=== PATIENT | male | born 1955 | race American Indian/Alaskan Native ===

== ENCOUNTER 2016-09-07 17:55 | Emergency (ER) | payer MEDICARE, MEDICAID ==
[2016-09-07] MEDS ORDERED: diphenhydrAMINE 50 MG Cap PO ONE (18:24)
[2016-09-07] MEDS ORDERED: Ketorolac 60 MG/2 ML SDV IM ONE (18:24)
[2016-09-07] MEDS ORDERED: LORazepam 2 MG/ML MDV IM ONE (18:24)
[2016-09-07] MEDS ORDERED: Ondansetron 4 MG Tab.DIS PO ONE (18:24)
[2016-09-07 19:58] VITALS: BP 136/73
--- NOTE | 2016-09-08 02:14 | ER ---
DATE SEEN: 09/07/2016 HISTORY OF PRESENT ILLNESS: The patient is a 60-year-old gentleman, who presented to Emergency Department with headache/migraine. He says he has migraines at least 3 to 4 times a month. He usually takes [id number] pain medications for it and it seems to resolve. He is not sure what his triggers are. In the past, a couple of years ago, they did try Imitrex, and it did not seem to help. He says he has some photophobia, but no focal weaknesses. He has some mild nausea, but no actual emesis. MEDICATIONS: 1. Glucophage. 2. Lipitor. 3. Flomax. 4. Propranolol. 5. Lisinopril. 6. Neurontin. 7. Lexapro. 8. Cymbalta. 9. Amitriptyline. 10.Albuterol. ALLERGIES: Hydrocodone and penicillin. PAST MEDICAL HISTORY: 1. Pulmonary emphysema. 2. Cerebrovascular accident. 3. Chronic headaches. 4. Facial numbness. 5. Diabetes, type 2. 6. Obesity. 7. Chronic back pain. REVIEW OF SYSTEMS: CONSTITUTIONAL: No fevers or chills. RESPIRATORY: No shortness of breath. PHYSICAL EXAMINATION: VITAL SIGNS: His temperature is 36.8, pulse is 83, blood pressure is 143/81, respiratory rate is 16, and 94% on room air. GENERAL: He is in no apparent acute distress. HEENT: His pupils are equal and round and responsive to light. Extraocular muscles are intact. Funduscopic exam was within normal limits. Oropharyngeal region is clear. NECK: Supple. No lymphadenopathy. Full range of motion. Nontender. NEUROLOGICAL: No focal deficits. EMERGENCY DEPARTMENT COURSE: The patient received Toradol 60 mg IM, Ativan 1 mg IM, Benadryl 50 mg p.o., and Zofran 4 mg p.o. He had improvement in his symptoms. Neurologically, he remains nonfocal and stable. Vitals remain stable. ASSESSMENT: Acute on chronic migraines. PLAN: Continue current medications, and work on figuring out what his triggers are and limiting them. /[id number] FRANNIE/DAVID
== END 2016-09-07 19:52 | disposition home or self-care (01) ==
LOC: FB.ED 17:55
DX: G43.909 Migraine, unspecified, not intractable, without status migrainosus (principal); E11.9 Type 2 diabetes mellitus without complications; E66.9 Obesity, unspecified; Z86.73 Personal history of transient ischemic attack (TIA), and cerebral infarction without residual deficits; M54.9 Dorsalgia, unspecified; G89.29 Other chronic pain; Z68.42 Body mass index [BMI] 45.0-49.9, adult
CPT/HCPCS: 96372; 99283; A9270; J1885; J2060

== ENCOUNTER 2017-02-07 14:02 | Emergency (ER) | payer MEDICARE, MEDICAID ==
[2017-02-07 16:11] VITALS: BP 135/79
--- NOTE | 2017-02-10 11:27 | ER ---
DATE SEEN: 02/07/2017 TIME: The patient was seen at 1445 hours. HISTORY OF PRESENT ILLNESS: This 61-year-old diabetic with COPD, CVA, small stroke, headaches, left-sided facial weakness, with type 2 diabetes, obesity, BMI greater than 43.5, and chronic back pain, comes in with history of discomfort in his throat of 2 days' duration, radiating to his left ear. He has mild difficulty swallowing. He uses oxycodone for his chronic low back pain. He has disability because of his chronic low back pain. He has prostatism, hypertension, depression, and COPD. He is not using insulin, but uses metformin 1000 mg daily for his diabetes. CURRENT MEDICATIONS: 1. Atorvastatin 20 mg daily. 2. Flomax 0.5 mg daily. 3. Metaxalone 800 mg at bedtime. 4. Lisinopril 10 mg daily. 5. Gabapentin 300 mg t.i.d. 6. Lexapro 10 mg at bedtime. 7. Duloxetine 30 mg daily. 8. Amitriptyline 25 mg daily (4 tablets for not only pain, but also for depression). 9. Albuterol 2 puffs q.i.d. 10.Oxycodone p.r.n. 11.Metformin 1000 mg daily. ALLERGIES: Hydrocodone, penicillin, and shellfish. REVIEW OF SYSTEMS: Otherwise negative except he has chronic problems with lower back pain, uses a cane. He is obese. Denies shortness of breath, chest pain, irregular heartbeat, abdominal pain, recent fever, dysphagia, compromised vision, or loss of sensation in the lower extremities. PHYSICAL EXAMINATION: VITAL SIGNS: Blood pressure 128/58, heart rate 80, respirations 18, oxygen saturation 95%, and temperature is 36.9 degrees centigrade. CONSTITUTIONAL: Alert man who is massively overweight. BMI is 43.5 kg/m2. He has appropriate voice. He is attended by his . He is appropriately dressed and appropriate communication. HEENT: Pharynx has a film of white protein on the soft palate, not on the posterior palate. There is mild erythema noted. Palate is mobile. The uvula is slightly erythematous and slightly off to the side. Minimal cervical adenopathy. No bruits in the neck. Gag is in place. TMs negative. NECK: Supple. LUNGS: Clear without rales, rhonchi, or wheezes. HEART: S1, S2. No murmur. No irregular rate and rhythm. ABDOMEN: Soft. No guarding. No abdominal discomfort. It is difficult to palpate anything in the abdomen because he has such an obese full abdomen. EXTREMITIES: Without edema. NEURO: Not performed. LABORATORY DATA: Quick strep is negative. Thrush test (BENITA) was negative. ASSESSMENT: Soft palate pharyngitis, uvulitis, etiology indeterminate. PLAN: Treat with Keflex 500 mg t.i.d., 30 tablets. The patient has 8% potential for cross reactivity with penicillin allergy. He has had penicillin rash in the past. The patient is informed if he should have a rash, he should discontinue the medicine. Follow up with doctor in 7 to 14 days, earlier if worse. He is advised to work on his weight any way he can to decrease weight. /[id number] AUDRA/DAVID
== END 2017-02-07 16:10 | disposition home or self-care (01) ==
LOC: FB.ED 14:02
DX: J02.9 Acute pharyngitis, unspecified (principal); K12.2 Cellulitis and abscess of mouth; I10 Essential (primary) hypertension; F32.9 Major depressive disorder, single episode, unspecified; E11.9 Type 2 diabetes mellitus without complications; J44.9 Chronic obstructive pulmonary disease, unspecified; Z79.84 Long term (current) use of oral hypoglycemic drugs; Z79.899 Other long term (current) drug therapy; Z88.0 Allergy status to penicillin; Z88.5 Allergy status to narcotic agent; Z91.013 Allergy to seafood
CPT/HCPCS: 87081; 87220; 87430; 99282; 99283

== ENCOUNTER 2017-07-09 13:25 | Emergency (ER) | payer MEDICARE, MEDICAID ==
[2017-07-09] MEDS: Cyclobenzaprine 10 MG Tab PO ONE (14:34)
--- NOTE | 2017-07-09 14:35 | EDM.PDOC ---
ED HPI GENERAL MEDICAL PROBLEM - General Chief Complaint: Back Pain or Injury Stated Complaint: BACK PAIN Time Seen by Provider: 07/09/17 14:00 Source of Information: Reports: Patient History Limitations: Reports: No Limitations - History of Present Illness INITIAL COMMENTS - FREE TEXT/NARRATIVE: c/o LBP pt obese, has chronic LBP, MRI l-spine 3m ago showed DJD and bulging disc and moderate stenosis at L4, has his 1st back surgery at [facility] on 06/05 MPMP shows no fills in past 1y, has used oxycodone in past he took ibuprofen and Excedrin migraine without benefit inc'd pain this AM, slept okay last night no radiation, does have chronic pain in his calves has burning from neuropathy in the soles of his feet for which he takes one gabapentin in AM that helps call to [facility] made, Dr Aguilar prescribed Flexeril 30 tabs and diclofenac on 06/05, only Flexeril was filled pt with [facility] with last BUN/creat 2y ago will need additional pain management with PCP 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 Lower back pain Pain Score (Numeric/FACES): 8 - Related Data Allergies Allergy/AdvReac Type Severity Reaction Status Date / Time hydrocodone Allergy Leg Cramps Verified 07/09/17 13:32 Penicillins Allergy Rash Verified 07/09/17 13:32 shellfish derived Allergy Rash Verified 07/09/17 13:32 Home Meds: Home Meds atorvaSTATin [Lipitor] 20 mg PO DAILY 03/02/15 [History] metFORMIN [Glucophage] 1,000 mg PO DAILY 03/02/15 [History] Albuterol [Ventolin HFA] 2 puff INH Q6H PRN 01/17/16 [History] Amitriptyline [Elavil] 50 mg PO BEDTIME 01/17/16 [History] Escitalopram [Lexapro] 10 mg PO BEDTIME 01/17/16 [History] Gabapentin [Neurontin] 300 mg PO TID 01/17/16 [History] Lisinopril 10 mg PO DAILY 01/17/16 [History] Tamsulosin [Flomax] 0.4 mg PO BEDTIME 01/17/16 [History] Cyclobenzaprine [Flexeril] 10 mg PO TID PRN #30 tab 07/09/17 [Rx] SUMAtriptan [Sumatriptan] 20 mg ELLIE ASDIRECTED PRN 07/09/17 [History] oxyCODONE 5 mg PO Q8H PRN #5 tab 07/09/17 [Rx] Past Medical History - Past Health History Medical/Surgical History: Denies Medical/Surgical History Cardiovascular History: Reports: High Cholesterol Respiratory History: Reports: Sleep Apnea, SOB Other Respiratory History: uses CPAP @ [facility]. Genitourinary History: Reports: Prostate Disorder Musculoskeletal History: Reports: Arthritis, Back Pain, Chronic, Fracture, Neck Pain, Chronic Other Musculoskeletal History: Hx L fx foot, fx pelvis & R hip, R collar bone, R elbow, Neurological History: Reports: Brain Injury, Concussion, Head Trauma, Migraines , Neuropathy, Diabetic, Seizure Psychiatric History: Reports: Anxiety, Depression, Psych Hospitalization(s) Endocrine/Metabolic History: Reports: Diabetes, Type II, Obesity/BMI 30+ - Infectious Disease History Infectious Disease History: Reports: Chicken Pox, Measles - Past Surgical History Head Surgeries/Procedures: Reports: None HEENT Surgical History: Reports: Adenoidectomy, Tonsillectomy GI Surgical History: Reports: Cholecystectomy, Colonoscopy, Hernia Repair/Other Neurological Surgical History: Reports: None Musculoskeletal Surgical History: Reports: Knee Replacement Other Musculoskeletal Surgeries/Procedures:: L knee replacement Social & Family History - Family History Family Medical History: Noncontributory - Tobacco Use Smoking Status *Q: Former Smoker Years of Tobacco use: 40 Packs/Tins Daily: 1 Used Tobacco, but Quit: Yes Month/Year Tobacco Last Used: 2014 Second Hand Smoke Exposure: No - Caffeine Use Caffeine Use: Reports: Coffee, Soda, Tea - Alcohol Use Days Per Week of Alcohol Use: 0 - Recreational Drug Use Recreational Drug Use: Yes Drug Use in Last 12 Months: No Recreational Drug Type: Reports: Marijuana/Hashish ED ROS GENERAL - Review of Systems Review Of Systems: See Below Constitutional: Reports: No Symptoms HEENT: Reports: No Symptoms Respiratory: Reports: No Symptoms Cardiovascular: Reports: No Symptoms Endocrine: Reports: No Symptoms GI/Abdominal: Reports: No Symptoms : Reports: No Symptoms Musculoskeletal: Reports: Back Pain Skin: Reports: No Symptoms Neurological: Reports: No Symptoms Psychiatric: Reports: No Symptoms Hematologic/Lymphatic: Reports: No Symptoms Immunologic: Reports: No Symptoms ED EXAM,LOWER BACK PAIN/INJURY - Physical Exam Exam: See Below Exam Limited By: No Limitations General Appearance: Alert, WD/WN Respiratory/Chest: No Respiratory Distress Cardiovascular: Regular Rate, Rhythm Back Exam: Other (mild tender over lower l-spine as well as adjacent iliac crests, greatest tender over R iliac crest c/w mechanical LBP) Course - Vital Signs Last Recorded V/S: Last Vital Signs Temp 36.8 C 07/09/17 13:29 Pulse 78 07/09/17 13:29 Resp 18 07/09/17 13:29 BP 153/77 H 07/09/17 13:29 Pulse Ox 97 07/09/17 13:29 - Orders/Labs/Meds Orders: Active Orders 24 hr Category Date Time Status Cyclobenzaprine [Flexeril] Med 07/09/17 14:29 Once 10 mg PO ONETIME ONE Ketorolac [Toradol] Med 07/09/17 14:28 Once 60 mg IM ONETIME ONE Medication Orders Cyclobenzaprine HCl (Flexeril) 10 mg PO ONETIME ONE Stop: 07/09/17 14:30 Meds: Medications Generic Name Dose Route Start Last Admin Trade Name Freq PRN Reason Stop Dose Admin Cyclobenzaprine HCl 10 mg 07/09/17 14:29 Flexeril PO 07/09/17 14:30 ONETIME ONE Discontinued Medications Generic Name Dose Route Start Last Admin Trade Name Freq PRN Reason Stop Dose Admin Ketorolac Tromethamine 60 mg 07/09/17 14:28 Toradol IM 07/09/17 14:29 ONETIME ONE Departure - Departure Time of Disposition: 14:36 Disposition: Home, Self-Care 01 Condition: Good Clinical Impression: Low back pain - Discharge Information Prescriptions: Cyclobenzaprine [Flexeril] 10 mg PO TID PRN #30 tab PRN Reason: Pain oxyCODONE 5 mg PO Q8H PRN #5 tab PRN Reason: Pain Instructions: Chronic Back Pain Referrals: PCP,Not In Area [Primary Care Provider] - Additional Instructions: Use heat for 10 minutes 4 times a day. Sleep on a firm mattress. For pain and inflammation, take acetaminophen 325 mg 2 tabs 4 times a day. For pain, take oxycodone 5 mg 1 tab every 8 hours as needed. No alcohol. For pain and spasm, take cyclobenzaprine 10 mg 1 tab 3 times a day as needed. See your doctor in the next 4 days. - My Orders Last 24 Hours: My Active Orders 07/09/17 14:28 Ketorolac [Toradol] 60 mg IM ONETIME ONE 07/09/17 14:29 Cyclobenzaprine [Flexeril] 10 mg PO ONETIME ONE - Assessment/Plan Last 24 Hours: My Active Orders 07/09/17 14:28 Ketorolac [Toradol] 60 mg IM ONETIME ONE 07/09/17 14:29 Cyclobenzaprine [Flexeril] 10 mg PO ONETIME ONE
[2017-07-09] MEDS: Ketorolac 60 MG/2 ML SDV IM ONE (14:37)
[2017-07-09 14:54] VITALS: BP 155/97
== END 2017-07-09 14:48 | disposition home or self-care (01) ==
LOC: FB.ED 13:25
DX: M54.5 Low back pain (principal); E78.00 Pure hypercholesterolemia, unspecified; Z87.891 Personal history of nicotine dependence; E11.9 Type 2 diabetes mellitus without complications; E66.9 Obesity, unspecified; Z88.0 Allergy status to penicillin; Z91.013 Allergy to seafood; Z88.5 Allergy status to narcotic agent; Z79.899 Other long term (current) drug therapy; Z79.84 Long term (current) use of oral hypoglycemic drugs
CPT/HCPCS: 96372; 99283; A9270-GY; J1885

== ENCOUNTER 2018-05-30 16:55 | Emergency (ER) | payer MEDICARE, MEDICAID ==
[2018-05-30 17:44] VITALS: BP 141/70
--- NOTE | 2018-05-30 18:20 | EDM.PDOC ---
ED HPI GENERAL MEDICAL PROBLEM - General Chief Complaint: Neurological Problem Stated Complaint: NUMBNESS IN ARM AND FACE Time Seen by Provider: 05/30/18 17:15 Source of Information: Reports: Patient History Limitations: Reports: No Limitations - History of Present Illness INITIAL COMMENTS - FREE TEXT/NARRATIVE: c/o L cheek and LUE numbness x 1d had some pain as well altho that is gone, numb in the central L cheek and on the extensor aspect LUE from elbow to shoulder no change in sxs with ROM good appetite there was a possible lacunar infarct at L basal ganglia on 01/[address] without today shows no acute changes otherwise feeling well his from cancer 4m ago, now living alone - Related Data Allergies Allergy/AdvReac Type Severity Reaction Status Date / Time hydrocodone Allergy Leg Cramps Verified 05/30/18 17:18 Penicillins Allergy Rash Verified 05/30/18 17:18 shellfish derived Allergy Rash Verified 05/30/18 17:18 Home Meds: Home Meds atorvaSTATin [Lipitor] 20 mg PO DAILY 03/02/15 [History] metFORMIN [Glucophage] 1,000 mg PO DAILY 03/02/15 [History] Albuterol [Ventolin HFA] 2 puff INH Q6H PRN 01/17/16 [History] Gabapentin [Neurontin] 300 mg PO TID 01/17/16 [History] Lisinopril 10 mg PO DAILY 01/17/16 [History] Tamsulosin [Flomax] 0.4 mg PO BEDTIME 01/17/16 [History] SUMAtriptan [Sumatriptan] 20 mg ELLIE ASDIRECTED PRN 07/09/17 [History] Past Medical History - Past Health History Medical/Surgical History: Denies Medical/Surgical History Cardiovascular History: Reports: High Cholesterol Respiratory History: Reports: Sleep Apnea, SOB Other Respiratory History: uses CPAP @ hs. Genitourinary History: Reports: Prostate Disorder Musculoskeletal History: Reports: Arthritis, Back Pain, Chronic, Fracture, Neck Pain, Chronic Other Musculoskeletal History: Hx L fx foot, fx pelvis & R hip, R collar bone, R elbow, Neurological History: Reports: Brain Injury, Concussion, Head Trauma, Migraines , Neuropathy, Diabetic, Seizure Psychiatric History: Reports: Anxiety, Depression, Psych Hospitalization(s) Endocrine/Metabolic History: Reports: Diabetes, Type II, Obesity/BMI 30+ - Infectious Disease History Infectious Disease History: Reports: Chicken Pox, Measles - Past Surgical History Head Surgeries/Procedures: Reports: None HEENT Surgical History: Reports: Adenoidectomy, Tonsillectomy GI Surgical History: Reports: Cholecystectomy, Colonoscopy, Hernia Repair/Other Neurological Surgical History: Reports: None Musculoskeletal Surgical History: Reports: Knee Replacement Other Musculoskeletal Surgeries/Procedures:: L knee replacement Social & Family History - Family History Family Medical History: Noncontributory - Tobacco Use Smoking Status *Q: Former Smoker Used Tobacco, but Quit: Yes Month/Year Tobacco Last Used: 04/07 Second Hand Smoke Exposure: No - Caffeine Use Caffeine Use: Reports: Coffee - Recreational Drug Use Recreational Drug Use: No ED ROS GENERAL - Review of Systems Review Of Systems: See Below Constitutional: Reports: No Symptoms HEENT: Reports: No Symptoms Respiratory: Reports: No Symptoms Cardiovascular: Reports: No Symptoms Endocrine: Reports: No Symptoms GI/Abdominal: Reports: No Symptoms : Reports: No Symptoms Musculoskeletal: Reports: No Symptoms Skin: Reports: No Symptoms Neurological: Reports: Numbness Psychiatric: Reports: No Symptoms Hematologic/Lymphatic: Reports: No Symptoms Immunologic: Reports: No Symptoms ED EXAM, NEURO - Physical Exam Exam: See Below Exam Limited By: No Limitations General Appearance: Alert, WD/WN, No Apparent Distress Eye Exam: Bilateral Eye: EOMI, Normal Inspection, PERRL Ears: Normal External Exam, Normal Canal, Hearing Grossly Normal Nose: Normal Inspection, Normal Mucosa, No Blood Throat/Mouth: Normal Inspection, Normal Lips, Normal Teeth, Normal Gums, Normal Oropharynx, Normal Voice, No Airway Compromise Head Exam: Atraumatic, Normocephalic, Other (slight tender at L cheek) Neck: Normal Inspection, Supple, Non-Tender, Full Range of Motion. No: Lymphadenopathy (R), Lymphadenopathy (L) Respiratory/Chest: No Respiratory Distress, Lungs Clear, Normal Breath Sounds, No Accessory Muscle Use, Chest Non-Tender Cardiovascular: Regular Rate, Rhythm, No Edema, No Gallop, No JVD, No Murmur, No Rub GI/Abdominal: Soft, Non-Tender, No Distention Neurological: Alert, Normal Mood/Affect, CN II-XII Intact, Normal Gait, Oriented x 3, Other (slight numb at LUE on extensor surface from elbow to shoulder, no change with passive ROM L shoulder) Back Exam: Normal Inspection, Full Range of Motion, NT Extremities: Normal Inspection, Normal Range of Motion, Non-Tender, No Pedal Edema Psychiatric: Normal Affect, Normal Mood Skin Exam: Warm, Dry, Intact, Normal Color, No Rash Course - Vital Signs Last Recorded V/S: Last Vital Signs Temp 36.4 C 05/30/18 17:26 Pulse 78 05/30/18 17:26 Resp 18 05/30/18 17:26 BP 141/70 H 05/30/18 17:26 Pulse Ox 95 05/30/18 17:26 - Orders/Labs/Meds Orders: Active Orders 24 hr Category Date Time Status EKG Documentation Completion [RC] ASDIRECTED Care 05/30/18 17:34 Active Head wo Cont [CT] Stat Exams 05/30/18 17:41 Ordered EKG 12 Lead [EK] Routine Ther 05/30/18 17:34 Ordered Labs: Laboratory Tests 05/30/18 05/30/18 05/30/18 Range/Units 17:10 17:10 17:10 WBC 12.3 H (4.5-12.0) X10-3/uL RBC 5.53 (4.30-5.75) x10(6)uL Hgb 16.1 H (11.5-15.5) g/dL Hct 48.5 (30.0-51.3) % MCV 87.6 (80-96) fL MCH 29.1 (27.7-33.6) pg MCHC 33.2 (32.2-35.4) g/dL RDW 14.7 (11.5-15.5) % Plt Count 320 (125-369) X10(3)uL MPV 8.3 (7.4-10.4) fL Neut % (Auto) 66.3 (46-82) % Lymph % (Auto) 24.7 (13-37) % [place] % (Auto) 6.1 (4-12) % Eos % (Auto) 2 (1.0-5.0) % Baso % (Auto) 1 (0-2) % Neut # (Auto) 8.2 (1.6-8.3) # Lymph # (Auto) 3.0 (0.6-5.0) # [place] # (Auto) 0.7 (0.0-1.3) # Eos # (Auto) 0.3 (0.0-0.8) # Baso # (Auto) 0.1 (0.0-0.2) # Sodium 140 (135-145) mmol/L Potassium 3.9 (3.5-5.3) mmol/L Chloride 103 (100-110) mmol/L Carbon Dioxide 26 (21-32) mmol/L BUN 19 H (7-18) mg/dL Creatinine 1.0 (0.70-1.30) mg/dL Est Cr Clr Drug Dosing TNP Estimated GFR (MDRD) > 60 (>60) BUN/Creatinine Ratio 19.0 (9-20) Glucose 87 (80-116) mg/dL Calcium 8.4 L (8.6-10.2) mg/dL Total Bilirubin 0.4 (0.1-1.3) mg/dL AST 25 (5-25) IU/L ALT 36 (12-36) U/L Alkaline Phosphatase 91 (56-112) IU/L Troponin I < 0.017 L (<0.017-0.056) ng/mL Total Protein 6.7 (6.0-8.0) g/dL Albumin 3.8 (3.2-4.6) g/dL Globulin 2.9 g/dL Albumin/Globulin Ratio 1.3 Urine Color (YELLOW) Urine Appearance (CLEAR) Urine pH (5.0-6.5) Ur Specific [place] (1.010-1.025) Urine Protein (NEGATIVE) mg/dL Urine Glucose (UA) (NEGATIVE) mg/dL Urine Ketones (NEGATIVE) mg/dL Urine Occult Blood (NEGATIVE) Urine Nitrite (NEGATIVE) Urine Bilirubin (NEGATIVE) Urine Urobilinogen (NEGATIVE) mg/dL Ur Leukocyte Esterase (NEGATIVE) Urine RBC (0) Urine WBC (0) Ur Squamous Epith Cells (NS,R,O) Urine Bacteria (NS) 05/30/18 Range/Units 17:40 WBC (4.5-12.0) X10-3/uL RBC (4.30-5.75) x10(6)uL Hgb (11.5-15.5) g/dL Hct (30.0-51.3) % MCV (80-96) fL MCH (27.7-33.6) pg MCHC (32.2-35.4) g/dL RDW (11.5-15.5) % Plt Count (125-369) X10(3)uL MPV (7.4-10.4) fL Neut % (Auto) (46-82) % Lymph % (Auto) (13-37) % [place] % (Auto) (4-12) % Eos % (Auto) (1.0-5.0) % Baso % (Auto) (0-2) % Neut # (Auto) (1.6-8.3) # Lymph # (Auto) (0.6-5.0) # [place] # (Auto) (0.0-1.3) # Eos # (Auto) (0.0-0.8) # Baso # (Auto) (0.0-0.2) # Sodium (135-145) mmol/L Potassium (3.5-5.3) mmol/L Chloride (100-110) mmol/L Carbon Dioxide (21-32) mmol/L BUN (7-18) mg/dL Creatinine (0.70-1.30) mg/dL Est Cr Clr Drug Dosing Estimated GFR (MDRD) (>60) BUN/Creatinine Ratio (9-20) Glucose (80-116) mg/dL Calcium (8.6-10.2) mg/dL Total Bilirubin (0.1-1.3) mg/dL AST (5-25) IU/L ALT (12-36) U/L Alkaline Phosphatase (56-112) IU/L Troponin I (<0.017-0.056) ng/mL Total Protein (6.0-8.0) g/dL Albumin (3.2-4.6) g/dL Globulin g/dL Albumin/Globulin Ratio Urine Color Yellow (YELLOW) Urine Appearance Clear (CLEAR) Urine pH 5.0 (5.0-6.5) Ur Specific [place] 1.015 (1.010-1.025) Urine Protein Negative (NEGATIVE) mg/dL Urine Glucose (UA) Normal (NEGATIVE) mg/dL Urine Ketones 15 H (NEGATIVE) mg/dL Urine Occult Blood Negative (NEGATIVE) Urine Nitrite Negative (NEGATIVE) Urine Bilirubin Negative (NEGATIVE) Urine Urobilinogen Normal (NEGATIVE) mg/dL Ur Leukocyte Esterase Negative (NEGATIVE) Urine RBC Not seen (0) Urine WBC 0-5 (0) Ur Squamous Epith Cells Few H (NS,R,O) Urine Bacteria Few H (NS) - Re-Assessments/Exams Free Text/Narrative Re-Assessment/Exam: 05/30/18 18:22 labs are neg except 15 ketones in urine EKG WNL cannot exclude a TIA altho seems unlikely given c/o of both pain and numbness as well as both L cheek and LUE numbness Departure - Departure Time of Disposition: 18:15 Disposition: Home, Self-Care 01 Condition: Good Clinical Impression: Left arm numbness, Left facial numbness - Discharge Information *PRESCRIPTION DRUG MONITORING PROGRAM REVIEWED*: Not Applicable *COPY OF PRESCRIPTION DRUG MONITORING REPORT IN PATIENT EBONIE: Not Applicable Referrals: Sara Pena [employer] MAINTENANCE SUPERVISOR [Primary Care Provider] - Additional Instructions: Continue current meds, including the baby aspirin. Continue current activities. No limitations. See your doctor in the next 3-5 days. Return to ED if you are feeling worse. - My Orders Last 24 Hours: My Active Orders 05/30/18 17:34 EKG Documentation Completion [RC] ASDIRECTED EKG 12 Lead [EK] Routine 05/30/18 17:41 Head wo Cont [CT] Stat - Assessment/Plan Last 24 Hours: My Active Orders 05/30/18 17:34 EKG Documentation Completion [RC] ASDIRECTED EKG 12 Lead [EK] Routine 05/30/18 17:41 Head wo Cont [CT] Stat
== END 2018-05-30 18:20 | disposition home or self-care (01) ==
LOC: FB.ED 16:55
DX: R20.0 Anesthesia of skin (principal); E11.9 Type 2 diabetes mellitus without complications; E66.9 Obesity, unspecified; Z91.013 Allergy to seafood; Z79.84 Long term (current) use of oral hypoglycemic drugs; Z79.899 Other long term (current) drug therapy; Z98.890 Other specified postprocedural states; Z90.49 Acquired absence of other specified parts of digestive tract; Z87.891 Personal history of nicotine dependence; Z88.0 Allergy status to penicillin
CPT/HCPCS: 36415; 70450; 80053; 81001; 84484; 85025; 93005; 93010; 99283; 99284-25

== ENCOUNTER 2018-07-01 13:34 | Emergency (ER) | payer MEDICARE, MEDICAID ==
[2018-07-01] MEDS ORDERED: Aspirin 81 MG Tab.Chew PO ONE ×2 (13:51→15:33)
--- NOTE | 2018-07-01 13:56 | EDM.PDOC ---
ED HPI GENERAL MEDICAL PROBLEM - General Stated Complaint: LEFT ARM PAIN NUMBNESS SOB Time Seen by Provider: 07/01/18 13:34 Source of Information: Reports: Patient, Family History Limitations: Reports: No Limitations - History of Present Illness INITIAL COMMENTS - FREE TEXT/NARRATIVE: 62 y.o.w.m with H/O COPD, CVA NIDDM came to the ED due to left arm tingling since 7 am today. Pt took a baby ASA without help, left arm pain is rated at 4/ 10 on arrival. Pt had an angiogram done at [facility] 4-5 years ago which was found to be neg. Pt was seen a t clinic a week ago with left arm pain and was told it is bursitis. Pt is not using tobacco. No N/V has mild SOB, No SSCP on arrival. No other acute medical Issues. BP 127/64 RR 17 Pulse ox on RA 97%, Temp 36.7 Pulse 77 Onset Date: 07/01/18 Onset Time: 07:00 Duration: Hour(s):, Intermittent Location: Reports: Chest, Upper Extremity, Left Quality: Reports: Dull Improves with: Reports: None Worsens with: Reports: None Context: Reports: Other Associated Symptoms: Reports: Shortness of Breath L neck in to L arm Pain Score (Numeric/FACES): 5 - Related Data Allergies Allergy/AdvReac Type Severity Reaction Status Date / Time hydrocodone Allergy Leg Cramps Verified 07/01/18 13:51 Penicillins Allergy Rash Verified 07/01/18 13:51 shellfish derived Allergy Rash Verified 07/01/18 13:51 Home Meds: Home Meds atorvaSTATin [Lipitor] 20 mg PO DAILY 03/02/15 [History] metFORMIN [Glucophage] 1,000 mg PO DAILY 03/02/15 [History] Albuterol [Ventolin HFA] 2 puff INH Q6H PRN 01/17/16 [History] Gabapentin [Neurontin] 300 mg PO TID 01/17/16 [History] Lisinopril 10 mg PO DAILY 01/17/16 [History] Tamsulosin [Flomax] 0.4 mg PO BEDTIME 01/17/16 [History] SUMAtriptan [Sumatriptan] 20 mg ELLIE ASDIRECTED PRN 07/09/17 [History] Amitriptyline [Elavil] 50 mg PO BEDTIME 07/01/18 [History] Aspirin 81 mg PO DAILY 07/01/18 [History] Omeprazole 20 mg PO BEDTIME 07/01/18 [History] Propranolol HCl [Propranolol HCl ER] 120 mg PO DAILY 07/01/18 [History] Past Medical History - Past Health History Medical/Surgical History: Denies Medical/Surgical History Cardiovascular History: Reports: High Cholesterol Respiratory History: Reports: Sleep Apnea, SOB Other Respiratory History: uses CPAP @ [facility]. Genitourinary History: Reports: Prostate Disorder Musculoskeletal History: Reports: Arthritis, Back Pain, Chronic, Fracture, Neck Pain, Chronic Other Musculoskeletal History: Hx L fx foot, fx pelvis & R hip, R collar bone, R elbow, Neurological History: Reports: Brain Injury, Concussion, Head Trauma, Migraines , Neuropathy, Diabetic, Seizure Psychiatric History: Reports: Anxiety, Depression, Psych Hospitalization(s) Endocrine/Metabolic History: Reports: Diabetes, Type II, Obesity/BMI 30+ - Infectious Disease History Infectious Disease History: Reports: Chicken Pox, Measles - Past Surgical History Head Surgeries/Procedures: Reports: None HEENT Surgical History: Reports: Adenoidectomy, Tonsillectomy GI Surgical History: Reports: Cholecystectomy, Colonoscopy, Hernia Repair/Other Neurological Surgical History: Reports: None Musculoskeletal Surgical History: Reports: Knee Replacement Other Musculoskeletal Surgeries/Procedures:: L knee replacement Social & Family History - Family History Family Medical History: Noncontributory - Caffeine Use Caffeine Use: Reports: Coffee ED ROS GENERAL - Review of Systems Review Of Systems: See Below Constitutional: Reports: No Symptoms HEENT: Reports: No Symptoms Respiratory: Reports: Shortness of Breath Cardiovascular: Reports: Other (left arm numb since 7 am) Endocrine: Reports: Other (diabetes) GI/Abdominal: Reports: No Symptoms : Reports: No Symptoms Musculoskeletal: Reports: No Symptoms Skin: Reports: No Symptoms Neurological: Reports: No Symptoms, Tingling (left arm) Psychiatric: Reports: No Symptoms Hematologic/Lymphatic: Reports: No Symptoms Immunologic: Reports: No Symptoms ED EXAM, GENERAL - Physical Exam Exam: See Below Exam Limited By: No Limitations General Appearance: Alert, WD/WN, Mild Distress, Obese (morbid) Eye Exam: Bilateral Eye: Normal Inspection Ears: Normal External Exam Ear Exam: Bilateral Ear: Auricle Normal Nose: Normal Inspection, Normal Mucosa, No Blood Throat/Mouth: Normal Inspection, Normal Lips, Normal Voice, No Airway Compromise Head: Atraumatic, Normocephalic Neck: Normal Inspection, Supple, Non-Tender, Full Range of Motion Respiratory/Chest: No Respiratory Distress, Lungs Clear, Decreased Breath Sounds Cardiovascular: Normal Peripheral Pulses, Regular Rate, Rhythm, No Edema, No JVD Peripheral Pulses: 1+: Radial (L) GI/Abdominal: Normal Bowel Sounds, Soft, Non-Tender, No Organomegaly, No Distention, No Abnormal Bruit, No Mass, Pelvis Stable (Male) Exam: Deferred Rectal (Males) Exam: Deferred Back Exam: Normal Inspection Extremities: Normal Inspection, Normal Range of Motion, Non-Tender, No Pedal Edema, Normal Capillary Refill Neurological: Alert, Oriented, CN II-XII Intact, Normal Cognition, Normal Gait Psychiatric: Normal Affect, Normal Mood Skin Exam: Warm, Dry, Intact, Normal Color, No Rash Lymphatic: No Adenopathy EKG INTERPRETATION EKG Date: 07/01/18 Time: 13:45 Rhythm: NSR Rate (Beats/Min): 76 Helix: Normal P-Wave: Present QRS: Normal ST-T: Normal (1/2 mm inf leads, no change from 05/30/2018) QT: Normal Comparison: NA - No Prior EKG Course - Vital Signs Text/Narrative:: 62 y.o.w.m with H/O COPD, CVA NIDDM came to the ED due to left arm tingling since 7 am today. Pt took a baby ASA without help, left arm pain is rated at 4/ 10 on arrival. Pt had an angiogram done at [facility] 4-5 years ago which was found to be neg. Pt was seen a t clinic a week ago with left arm pain and was told it is bursitis. Pt is not using tobacco. No N/V has mild SOB, No SSCP on arrival. No other acute medical Issues. BP 127/64 RR 17 Pulse ox on RA 97%, Temp 36.7 Pulse 77 PE: Morbid obes 62 y.o.w.m with left arm pain and SOB Imaging: CXR: COPD, Atelectasis LLL of lung as per RAD Labs: Troponin 0.017 D Dimer 0.63 Mg 1.6 Ca 8.4 remainder of BMP was nl. CBC nl Impression: Unstable angina, Low Magnesium, low Ca. h/o NIDDM, elevated D Dimer Tx: ASA, Mg. NTG paste, Heparin drip with bolus, Morphine Reexam: Pt was stable in the ED, left arm pain was still rated 4/10 PT MS was given 2.58 pm Consultation: Dr. Gaffney, Hospitalist: Transfer to [place] 3.07 pm Consultation: Dr. Garcia, Floor Sanding Machine Operator, [facility]: admit to Medicine, will do an angiogram as soon the patient arrives 3.[address] Blue, Hospitalist, [facility]: Accepted the PT for transfer and admission and further care to [facility]. Will do an angia CT Chest as need at [facility]. Reexam: Pain still 4/10 despite ASA, NTG and Morphine at time of transfere by EMS Plan: Transfer to [facility] Last Recorded V/S: Last Vital Signs Temp 36.3 C 07/01/18 13:38 Pulse 89 07/01/18 16:00 Resp 20 07/01/18 16:00 BP 125/64 07/01/18 16:00 Pulse Ox 92 L 07/01/18 16:00 - Orders/Labs/Meds Labs: Laboratory Tests 07/01/18 07/01/18 07/01/18 Range/Units 14:27 14:27 14:27 WBC 10.9 (4.5-12.0) X10-3/uL RBC 5.30 (4.30-5.75) x10(6)uL Hgb 15.6 (13.5-17.8) g/dL Hct 46.2 (30.0-51.3) % MCV 87.1 (80-96) fL MCH 29.4 (27.7-33.6) pg MCHC 33.8 (32.2-35.4) g/dL RDW 14.7 (11.5-15.5) % Plt Count 296 (125-369) X10(3)uL MPV 8.2 (7.4-10.4) fL Neut % (Auto) 62.8 (46-82) % Lymph % (Auto) 22.1 (13-37) % Bates % (Auto) 8.6 (4-12) % Eos % (Auto) 4 (1.0-5.0) % Baso % (Auto) 3 H (0-2) % Neut # (Auto) 6.9 (1.6-8.3) # Lymph # (Auto) 2.4 (0.6-5.0) # Bates # (Auto) 0.9 (0.0-1.3) # Eos # (Auto) 0.4 (0.0-0.8) # Baso # (Auto) 0.3 H (0.0-0.2) # PT 10.4 (8.7-11.1) INR 1.07 (0.89-1.13) APTT (24.4-33.2) SECONDS D-Dimer, Quantitative 0.63 H (0.0-0.59) mg/LFEU Sodium 140 (135-145) mmol/L Potassium 4.3 (3.5-5.3) mmol/L Chloride 103 (100-110) mmol/L Carbon Dioxide 31 (21-32) mmol/L BUN 16 (7-18) mg/dL Creatinine 1.0 (0.70-1.30) mg/dL Est Cr Clr Drug Dosing 87.67 mL/min Estimated GFR (MDRD) > 60 (>60) BUN/Creatinine Ratio 16.0 (9-20) Glucose 98 (80-116) mg/dL Calcium 8.4 L (8.6-10.2) mg/dL Magnesium (1.8-2.5) mg/dL Troponin I (<0.017-0.056) ng/mL 07/01/18 07/01/18 07/01/18 Range/Units 14:27 14:27 14:27 WBC (4.5-12.0) X10-3/uL RBC (4.30-5.75) x10(6)uL Hgb (13.5-17.8) g/dL Hct (30.0-51.3) % MCV (80-96) fL MCH (27.7-33.6) pg MCHC (32.2-35.4) g/dL RDW (11.5-15.5) % Plt Count (125-369) X10(3)uL MPV (7.4-10.4) fL Neut % (Auto) (46-82) % Lymph % (Auto) (13-37) % Bates % (Auto) (4-12) % Eos % (Auto) (1.0-5.0) % Baso % (Auto) (0-2) % Neut # (Auto) (1.6-8.3) # Lymph # (Auto) (0.6-5.0) # Bates # (Auto) (0.0-1.3) # Eos # (Auto) (0.0-0.8) # Baso # (Auto) (0.0-0.2) # PT (8.7-11.1) INR (0.89-1.13) APTT 25.1 (24.4-33.2) SECONDS D-Dimer, Quantitative (0.0-0.59) mg/LFEU Sodium (135-145) mmol/L Potassium (3.5-5.3) mmol/L Chloride (100-110) mmol/L Carbon Dioxide (21-32) mmol/L BUN (7-18) mg/dL Creatinine (0.70-1.30) mg/dL Est Cr Clr Drug Dosing mL/min Estimated GFR (MDRD) (>60) BUN/Creatinine Ratio (9-20) Glucose (80-116) mg/dL Calcium (8.6-10.2) mg/dL Magnesium 1.6 L (1.8-2.5) mg/dL Troponin I < 0.017 L (<0.017-0.056) ng/mL Meds: Medications Discontinued Medications Generic Name Dose Route Start Last Admin Trade Name Freq PRN Reason Stop Dose Admin Albuterol/Ipratropium 3 ml 07/01/18 14:33 07/01/18 15:05 Duoneb 3.0-0.5 Mg/3 Ml NEB 07/01/18 14:34 3 ml ONETIME ONE Administration Aspirin 324 mg 07/01/18 13:51 07/01/18 16:21 Aspirin PO 07/01/18 13:52 Not Given ONETIME ONE Aspirin 243 mg 07/01/18 15:33 07/01/18 14:00 Aspirin PO 07/01/18 15:34 243 mg ONETIME ONE Administration Heparin Sodium (Porcine) 4,000 units 07/01/18 15:45 07/01/18 16:12 Heparin Sodium IVPUSH 07/01/18 15:46 4,000 units ONETIME ONE Administration Magnesium Sulfate 4 gm/ Premix 50 mls @ 150 mls/hr 07/01/18 14:53 07/01/18 15 :30 IV 07/01/18 14:54 150 mls/hr ONETIME STA Administration Heparin Sodium/Sodium Chloride 25,000 units in 500 mls @ 35.924 mls/hr 15:30 Heparin 25,000 Units In 1/2 Ns 500 Ml IV TITRATE ENE Protocol 12 UNITS/KG/HR Heparin Sodium/Sodium Chloride 25,000 units in 500 mls @ 20.058 mls/hr 15:45 07/01/18 16:15 Heparin 25,000 Units In 1/2 Ns 500 Ml IV 6.7 units/kg/hr TITRATE ENE 20.058 mls/hr Administration Protocol 6.7 UNITS/KG/HR Morphine Sulfate 2 mg 07/01/18 15:40 07/01/18 16:14 Morphine IVPUSH 07/01/18 15:41 2 mg ONETIME STA Administration Nitroglycerin 0.4 mg 07/01/18 14:53 07/01/18 15:32 Nitro-Dur 0.4 Mg/Hr TRDERM 07/01/18 14:54 0.4 mg DAILY STA Administration Sodium Chloride 10 ml 07/01/18 19:55 Saline Flush FLUSH ASDIRECTED PRN Keep Vein Open Departure - Departure Time of Disposition: 04:00 Disposition: DC/Tfer to [facility] 02 Reason for Transfer *Q: Other (No health analyst) Condition: Fair Clinical Impression: Unstable angina Referrals: Sara Pena DIRECTOR OF OPERATIONS FOR THERAPY [Primary Care Provider] - Forms: ED Department Discharge
[2018-07-01] MEDS ORDERED: Albuterol/Ipratropium 3.0-0.5 MG/3 ML Neb Soln NEB ONE (14:33)
[2018-07-01] MEDS ORDERED: Nitroglycerin 0.4 MG/HR Transdermal Patch TRDERM STA (14:53)
[2018-07-01] MEDS ORDERED: Magnesium Sulfate/Water 4 GM in Premix Bag 1 BAG IV STA (14:53)
--- NOTE | 2018-07-01 15:13 | CR ---
INDICATION: Short of breath, left arm pain. CHEST: Two PA views and a lateral view of the chest, 07/01/18, were compared with 03/02/15 and 06/08/13. The heart overall appears normal in size. The aorta is tortuous with calcification in the arch. Prominent AP diameter with slightly flattened diaphragm leaves and hyperaeration suggests COPD - correlate clinically. There are some linear densities at the left lower lung field and costophrenic angle, raising question of linear atelectasis and/or fibrosis. A definite active infiltrate or effusion was not identified. Bridging hyperostotic changes are noted in the mid thoracic spine. IMPRESSION: 1. No definite acute process - minimal linear atelectasis may be present, however, at the left lung base. 2. COPD likely - correlate clinically. 3. ASD aorta. 4. DJD spine. Report was given by phone to Dr. Mack at approximately 1435 hours on 07/01/18. [facility]
[2018-07-01] MEDS ORDERED: Heparin Sodium/0.45% NaCl 25,000 UNITS/500 ML BAG IV SCH ×2 (15:30→15:45)
[2018-07-01] MEDS ORDERED: Morphine 2 MG/ML Syringe IVPUSH STA (15:40)
[2018-07-01] MEDS ORDERED: Heparin Sodium 5,000 Units/ML Vial IVPUSH ONE (15:45)
[2018-07-01] MEDS ORDERED: Sodium Chloride 0.9% 10 ML Syringe FLUSH PRN (19:55)
[2018-07-01 20:07] VITALS: BP 125/64
== END 2018-07-01 16:23 ==
LOC: FB.ED 13:34 → FB.MS 15:28 → UNDOADMOB 15:28 → FB.ED 16:23
DX: I20.0 Unstable angina (principal); J44.9 Chronic obstructive pulmonary disease, unspecified; E11.9 Type 2 diabetes mellitus without complications; E78.00 Pure hypercholesterolemia, unspecified; R79.1 Abnormal coagulation profile; E83.42 Hypomagnesemia; E83.51 Hypocalcemia; Z79.84 Long term (current) use of oral hypoglycemic drugs; Z88.5 Allergy status to narcotic agent; Z88.0 Allergy status to penicillin; Z91.013 Allergy to seafood; Z86.73 Personal history of transient ischemic attack (TIA), and cerebral infarction without residual deficits; Z79.899 Other long term (current) drug therapy; Z79.82 Long term (current) use of aspirin
CPT/HCPCS: 36415; 71046; 80048; 83735; 84484; 85025; 85379; 85610; 85730; 93005; 94640; A9270; J1644; J2270; J3475; J7620-GY

== ENCOUNTER 2018-10-27 14:14 | Emergency (ER) | payer MEDICARE, MEDICAID ==
[2018-10-27] MEDS ORDERED: Bupivacaine 0.5% 10 ML SDV INJECT ONE (14:15)
[2018-10-27] MEDS ORDERED: Sulfamethoxazole/Trimethoprim 800-160 MG Tab PO ONE (14:28)
[2018-10-27 14:42] VITALS: BP 122/97; PULSE 71
--- NOTE | 2018-10-27 14:46 | EDM.PDOC ---
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 Daniel was bleeding initially. No active bleed on arrival. Pt feels numb at the lat aspect at his left index finger, which is new. His has otherwise good ROM. No other acute med issues. Last TD 5 years ago. BP 122/97 RR 18 Pulse ox 97% on RA Temp 36.8 Pulse 97 Onset Date: 10/27/18 Onset Time: 13:00 Duration: Minutes:, Hour(s): Location: Reports: Upper Extremity, Left (2nd finger) Quality: Reports: Ache, Burning, Dull Severity: Mild Improves with: Reports: Rest Worsens with: Reports: Movement Context: Reports: Trauma Associated Symptoms: Reports: No Other Symptoms left finger Pain Score (Numeric/FACES): 5 - Related Data Allergies Allergy/AdvReac Type Severity Reaction Status Date / Time hydrocodone Allergy Leg Cramps Verified 10/27/18 14:38 Penicillins Allergy Rash Verified 10/27/18 14:38 shellfish derived Allergy Rash Verified 10/27/18 14:38 Home Meds: Home Meds atorvaSTATin [Lipitor] 20 mg PO DAILY 03/02/15 [History] metFORMIN [Glucophage] 1,000 mg PO DAILY 03/02/15 [History] Albuterol [Ventolin HFA] 2 puff INH Q6H PRN 01/17/16 [History] Gabapentin [Neurontin] 300 mg PO TID 01/17/16 [History] Lisinopril 10 mg PO DAILY 01/17/16 [History] Tamsulosin [Flomax] 0.4 mg PO BEDTIME 01/17/16 [History] SUMAtriptan [Sumatriptan] 20 mg ELLIE ASDIRECTED PRN 07/09/17 [History] Amitriptyline [Elavil] 50 mg PO BEDTIME 07/01/18 [History] Aspirin 81 mg PO DAILY 07/01/18 [History] Omeprazole 20 mg PO BEDTIME 07/01/18 [History] Propranolol HCl [Propranolol HCl ER] 120 mg PO DAILY 07/01/18 [History] Sulfamethoxazole/Trimethoprim [Bactrim Ds Tablet] 1 each PO BID #20 tablet 10/27 [Rx] Past Medical History - Past Health History Medical/Surgical History: Denies Medical/Surgical History HEENT History: Reports: Macular Degeneration Cardiovascular History: Reports: High Cholesterol Respiratory History: Reports: Sleep Apnea, SOB Other Respiratory History: uses CPAP @ [facility]. Gastrointestinal History: Reports: GERD Genitourinary History: Reports: Prostate Disorder Musculoskeletal History: Reports: Arthritis, Back Pain, Chronic, Fracture, Neck Pain, Chronic Other Musculoskeletal History: Hx L fx foot, fx pelvis & R hip, R collar bone, R elbow, Neurological History: Reports: Brain Injury, Concussion, Head Trauma, Migraines , Neuropathy, Diabetic, Seizure Psychiatric History: Reports: Anxiety, Depression, Psych Hospitalization(s) Other Psychiatric History: ETOH abuse & tx Endocrine/Metabolic History: Reports: Diabetes, Type II, Obesity/BMI 30+ - Infectious Disease History Infectious Disease History: Reports: Chicken Pox, Measles - Past Surgical History Head Surgeries/Procedures: Reports: None HEENT Surgical History: Reports: Adenoidectomy, Tonsillectomy GI Surgical History: Reports: Cholecystectomy, Colonoscopy, Hernia Repair/Other Neurological Surgical History: Reports: None Musculoskeletal Surgical History: Reports: Knee Replacement Other Musculoskeletal Surgeries/Procedures:: L knee replacement Social & Family History - Family History Family Medical History: Noncontributory - Caffeine Use Caffeine Use: Reports: Coffee ED ROS GENERAL - Review of Systems Review Of Systems: See Below Constitutional: Reports: No Symptoms HEENT: Reports: No Symptoms Respiratory: Reports: No Symptoms Cardiovascular: Reports: No Symptoms Endocrine: Reports: No Symptoms GI/Abdominal: Reports: No Symptoms : Reports: No Symptoms Musculoskeletal: Reports: Hand Pain (left index finger) Skin: Reports: No Symptoms Neurological: Reports: No Symptoms Psychiatric: Reports: No Symptoms Hematologic/Lymphatic: Reports: No Symptoms Immunologic: Reports: No Symptoms ED EXAM, SKIN/RASH Exam: See Below Exam Limited By: No Limitations General Appearance: Alert, WD/WN, Mild Distress Eye Exam: Bilateral Eye: Normal Inspection Ears: Normal External Exam, Normal Canal Nose: Normal Inspection, Normal Mucosa, No Blood Throat/Mouth: Normal Lips, Normal Voice, No Airway Compromise Head: Atraumatic, Normocephalic Neck: Normal Inspection, Supple, Non-Tender Respiratory/Chest: No Respiratory Distress, Lungs Clear, Normal Breath Sounds, Chest Non-Tender Cardiovascular: Normal Peripheral Pulses, Regular Rate, Rhythm, No Edema, No Rub Peripheral Pulses: 1+: Brachial (R) GI/Abdominal: Normal Bowel Sounds (Male) Exam: Deferred Rectal (Males) Exam: Deferred Back Exam: Normal Inspection, Full Range of Motion Extremities: Normal Range of Motion, No Pedal Edema, Normal Capillary Refill, Other (laceration at base of 2nd index finger left hand) Skin: Wound/Incision (base left index finger) Lymphatic: No Adenopathy ED SKIN PROCEDURES - Laceration/Wound Repair Left Digit - 2nd (Index) Lac/Wound length In cm: 2.0 Appearance: Stellate, Mildly Contaminated Distal NVT: No Tendon Injury, Other (numbnett left med finger) Local Anesthesia - Bupivicaine (Marcaine): 0.5% Plain Local Anesthetic Volume: 3cc Skin Prep: Providone-Iodine (Betadine) Saline Irrigation (cc's): 10 Exploration/Debridement/Repair: Wound Explored, In a Bloodless Field, Explored to Base Suture Size: 4-0 # of Sutures: 4 Suture Type: Interrupted, Other (ethilon) Tetanus Status Addressed: Yes (5 years ago.) Complications: No Course - Vital Signs Text/Narrative:: 62 y.i.w.m came to the ed shortly after 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 Daniel was bleeding initially. No active bleed on arrival. Pt feels numb at the lat aspect at his left index finger, which is new. His has otherwise good ROM. No other acute med issues. Last TD 5 years ago. BP 122/97 RR 18 Pulse ox 97% on RA Temp 36.8 Pulse 97 PE: WNWD W M with a left index finger LAC. No FB seen in wound Imaging: Not not indicated Procedure: Please see note above. Impression: Laceration left index finger. Repaired in the ED Tx: Wound care. LAC repair. Bactrim DS. Neosporin ointment Reexam: Improved Plan: D/C with instructions Last Recorded V/S: Last Vital Signs Temp 36.7 C 10/27/18 14:15 Pulse 71 10/27/18 14:15 Resp 18 10/27/18 14:15 BP 122/97 H 10/27/18 14:15 Pulse Ox 97 10/27/18 14:15 - Orders/Labs/Meds Meds: Medications Discontinued Medications Generic Name Dose Route Start Last Admin Trade Name Melinda PRN Reason Stop Dose Admin Trimethoprim/Sulfamethoxazole 1 tab 10/27/18 14:28 10/27/18 14:52 Septra Ds PO 10/27/18 14:29 1 tab ONETIME ONE Administration Departure - Departure Time of Disposition: 14:50 Disposition: Home, Self-Care 01 Condition: Good Clinical Impression: Laceration - Discharge Information Prescriptions: Sulfamethoxazole/Trimethoprim [Bactrim Ds Tablet] 1 each PO BID #20 tablet Instructions: Laceration Care, Adult, [id number], Sutured Wound Care, Easy-to -Read Referrals: Sara Pena PIT INSPECTOR [Primary Care Provider] - Forms: ED Department Discharge Additional Instructions: Please apply Neosporin ointment to wound twice daily, wound check in 2 days, suture removal in 2 weeks. Please come back if you symptoms get worse acutely.
== END 2018-10-27 15:10 | disposition home or self-care (01) ==
LOC: FB.ED 14:14
DX: S61.211A Laceration without foreign body of left index finger without damage to nail, initial encounter (principal); K21.9 Gastro-esophageal reflux disease without esophagitis; E11.9 Type 2 diabetes mellitus without complications; E66.9 Obesity, unspecified; Z79.82 Long term (current) use of aspirin; Z79.899 Other long term (current) drug therapy; Z90.49 Acquired absence of other specified parts of digestive tract; Z98.890 Other specified postprocedural states; Z88.0 Allergy status to penicillin; Z91.013 Allergy to seafood; W29.8XXA Contact with other powered hand tools and household machinery, initial encounter; Y99.0 Civilian activity done for income or pay
CPT/HCPCS: 12001; 99282; A9270; J3490; 99288

== ENCOUNTER 2018-11-25 14:43 | Emergency (ER) | payer MEDICARE, MEDICAID ==
[2018-11-25] MEDS ORDERED: Sodium Chloride 0.9% 1,000 ML IV ONE ×2 (14:55→16:34)
[2018-11-25] MEDS ORDERED: Sodium Chloride 0.9% 10 ML Syringe FLUSH PRN (15:10)
[2018-11-25] MEDS ORDERED: Meclizine 25 MG Tab PO ONE (15:34)
[2018-11-25 17:36] VITALS: BP 125/83
--- NOTE | 2018-11-25 17:41 | EDM.PDOC ---
ED HPI GENERAL MEDICAL PROBLEM - General Chief Complaint: Cardiovascular Problem Stated Complaint: DIZZY AND LIGHT HEADED Time Seen by Provider: 11/25/18 15:00 Source of Information: Reports: Patient History Limitations: Reports: No Limitations - History of Present Illness INITIAL COMMENTS - FREE TEXT/NARRATIVE: Patient is a 62 YO WM who presented to the ED because he fell down yesterday and landed on his right hip. There is no LOC after the fall but c/o rt hip pain. He recalled that prior to him falling he felt dizzy and almost had a black out. He denies any chest pain,nausea,vomiting. No headache or palpitations. - Related Data Allergies Allergy/AdvReac Type Severity Reaction Status Date / Time hydrocodone Allergy Leg Cramps Verified 11/25/18 14:51 Penicillins Allergy Rash Verified 11/25/18 14:51 shellfish derived Allergy Rash Verified 11/25/18 14:51 Home Meds: Home Meds atorvaSTATin [Lipitor] 20 mg PO DAILY 03/02/15 [History] metFORMIN [Glucophage] 500 mg PO DAILY 03/02/15 [History] Albuterol [Ventolin HFA] 2 puff INH Q6H PRN 01/17/16 [History] Gabapentin [Neurontin] 300 mg PO TID 01/17/16 [History] Lisinopril 10 mg PO DAILY 01/17/16 [History] Tamsulosin [Flomax] 0.4 mg PO BEDTIME 01/17/16 [History] SUMAtriptan [Sumatriptan] 20 mg ELLIE ASDIRECTED PRN 07/09/17 [History] Amitriptyline [Elavil] 50 mg PO BEDTIME 07/01/18 [History] Aspirin 81 mg PO DAILY 07/01/18 [History] Omeprazole 20 mg PO BEDTIME 07/01/18 [History] Propranolol HCl [Propranolol HCl ER] 120 mg PO DAILY 07/01/18 [History] Past Medical History - Past Health History Medical/Surgical History: Denies Medical/Surgical History HEENT History: Reports: Macular Degeneration Cardiovascular History: Reports: High Cholesterol Respiratory History: Reports: Sleep Apnea, SOB Other Respiratory History: uses CPAP @ [facility]. Gastrointestinal History: Reports: GERD Genitourinary History: Reports: Prostate Disorder Musculoskeletal History: Reports: Arthritis, Back Pain, Chronic, Fracture, Neck Pain, Chronic Other Musculoskeletal History: Hx L fx foot, fx pelvis & R hip, R collar bone, R elbow, Neurological History: Reports: Brain Injury, Concussion, Head Trauma, Migraines , Neuropathy, Diabetic, Seizure Psychiatric History: Reports: Anxiety, Depression, Psych Hospitalization(s) Other Psychiatric History: ETOH abuse & tx Endocrine/Metabolic History: Reports: Diabetes, Type II, Obesity/BMI 30+ - Infectious Disease History Infectious Disease History: Reports: Chicken Pox, Measles - Past Surgical History Head Surgeries/Procedures: Reports: None HEENT Surgical History: Reports: Adenoidectomy, Tonsillectomy GI Surgical History: Reports: Cholecystectomy, Colonoscopy, Hernia Repair/Other , Polypectomy Neurological Surgical History: Reports: None Musculoskeletal Surgical History: Reports: Knee Replacement Other Musculoskeletal Surgeries/Procedures:: L knee replacement Social & Family History - Family History Family Medical History: Noncontributory - Tobacco Use Smoking Status *Q: Current Every Day Smoker Years of Tobacco use: 45 Packs/Tins Daily: 0.5 - Caffeine Use Caffeine Use: Reports: Coffee - Recreational Drug Use Recreational Drug Use: No ED ROS GENERAL - Review of Systems Review Of Systems: See Below Constitutional: Reports: No Symptoms HEENT: Reports: No Symptoms Respiratory: Reports: No Symptoms Cardiovascular: Reports: Lightheadedness. Denies: Dyspnea on Exertion Endocrine: Reports: No Symptoms GI/Abdominal: Reports: No Symptoms : Reports: No Symptoms Musculoskeletal: Reports: No Symptoms Skin: Reports: No Symptoms Neurological: Reports: Dizziness. Denies: Weakness Psychiatric: Reports: No Symptoms ED EXAM, GENERAL - Physical Exam Exam: See Below Exam Limited By: No Limitations General Appearance: Alert, No Apparent Distress Ears: Normal External Exam Nose: Normal Inspection, Normal Mucosa, No Blood Throat/Mouth: Normal Inspection, Normal Lips, Normal Teeth Head: Atraumatic, Normocephalic Neck: Normal Inspection, Supple Respiratory/Chest: No Respiratory Distress, Lungs Clear, Normal Breath Sounds, No Accessory Muscle Use, Chest Non-Tender Cardiovascular: Normal Peripheral Pulses, Regular Rate, Rhythm, No Murmur, No Rub GI/Abdominal: Normal Bowel Sounds, Soft, Non-Tender, No Organomegaly Back Exam: Normal Inspection Extremities: Normal Inspection, Normal Range of Motion Neurological: Alert, Oriented, CN II-XII Intact, Normal Cognition Course - Vital Signs Last Recorded V/S: Last Vital Signs Temp 36.0 C 11/25/18 14:50 Pulse 80 08/29/19 17:36 Resp 18 11/25/18 17:36 BP 125/83 11/25/18 17:36 Pulse Ox 95 11/25/18 17:36 - Orders/Labs/Meds Labs: Laboratory Tests 11/25/18 11/25/18 11/25/18 Range/Units 15:05 15:05 15:05 WBC 11.9 (4.5-12.0) X10-3/uL RBC 5.16 (4.30-5.75) x10(6)uL Hgb 15.5 (13.5-17.8) g/dL Hct 45.8 (30.0-51.3) % MCV 88.8 (80-96) fL MCH 30.0 (27.7-33.6) pg MCHC 33.8 (32.2-35.4) g/dL RDW 14.8 (11.5-15.5) % Plt Count 310 (125-369) X10(3)uL MPV 8.0 (7.4-10.4) fL Neut % (Auto) 76.5 (46-82) % Lymph % (Auto) 13.5 (13-37) % [place] % (Auto) 6.8 (4-12) % Eos % (Auto) 1 (1.0-5.0) % Baso % (Auto) 2 (0-2) % Neut # (Auto) 9.1 H (1.6-8.3) # Lymph # (Auto) 1.6 (0.6-5.0) # [place] # (Auto) 0.8 (0.0-1.3) # Eos # (Auto) 0.1 (0.0-0.8) # Baso # (Auto) 0.3 H (0.0-0.2) # Sodium 142 (135-145) mmol/L Potassium 4.0 (3.5-5.3) mmol/L Chloride 104 (100-110) mmol/L Carbon Dioxide 29 (21-32) mmol/L BUN 23 H (7-18) mg/dL Creatinine 1.8 H (0.70-1.30) mg/dL Est Cr Clr Drug Dosing 48.70 mL/min Estimated GFR (MDRD) 39 L (>60) BUN/Creatinine Ratio 12.8 (9-20) Glucose 102 (80-116) mg/dL Calcium 8.8 (8.6-10.2) mg/dL Total Bilirubin 0.6 (0.1-1.3) mg/dL AST 26 H (5-25) IU/L ALT 40 H D (12-36) U/L Alkaline Phosphatase 80 (56-112) IU/L Troponin I < 0.017 L (<0.017-0.056) ng/mL Total Protein 6.6 (6.0-8.0) g/dL Albumin 3.7 (3.2-4.6) g/dL Globulin 2.9 g/dL Albumin/Globulin Ratio 1.3 Urine Color (YELLOW) Urine Appearance (CLEAR) Urine pH (5.0-6.5) Ur Specific [place] (1.010-1.025) Urine Protein (NEGATIVE) mg/dL Urine Glucose (UA) (NORMAL) mg/dL Urine Ketones (NEGATIVE) mg/dL Urine Occult Blood (NEGATIVE) Urine Nitrite (NEGATIVE) Urine Bilirubin (NEGATIVE) Urine Urobilinogen (NEGATIVE) mg/dL Ur Leukocyte Esterase (NEGATIVE) Urine RBC (0-5) Urine WBC (0-5) Ur Squamous Epith Cells (NS,R,O) Urine Bacteria (NS) Hyaline Casts (NS) Urine Mucus (NS) 11/25/18 Range/Units 17:22 WBC (4.5-12.0) X10-3/uL RBC (4.30-5.75) x10(6)uL Hgb (13.5-17.8) g/dL Hct (30.0-51.3) % MCV (80-96) fL MCH (27.7-33.6) pg MCHC (32.2-35.4) g/dL RDW (11.5-15.5) % Plt Count (125-369) X10(3)uL MPV (7.4-10.4) fL Neut % (Auto) (46-82) % Lymph % (Auto) (13-37) % [place] % (Auto) (4-12) % Eos % (Auto) (1.0-5.0) % Baso % (Auto) (0-2) % Neut # (Auto) (1.6-8.3) # Lymph # (Auto) (0.6-5.0) # [place] # (Auto) (0.0-1.3) # Eos # (Auto) (0.0-0.8) # Baso # (Auto) (0.0-0.2) # Sodium (135-145) mmol/L Potassium (3.5-5.3) mmol/L Chloride (100-110) mmol/L Carbon Dioxide (21-32) mmol/L BUN (7-18) mg/dL Creatinine (0.70-1.30) mg/dL Est Cr Clr Drug Dosing mL/min Estimated GFR (MDRD) (>60) BUN/Creatinine Ratio (9-20) Glucose (80-116) mg/dL Calcium (8.6-10.2) mg/dL Total Bilirubin (0.1-1.3) mg/dL AST (5-25) IU/L ALT (12-36) U/L Alkaline Phosphatase (56-112) IU/L Troponin I (<0.017-0.056) ng/mL Total Protein (6.0-8.0) g/dL Albumin (3.2-4.6) g/dL Globulin g/dL Albumin/Globulin Ratio Urine Color Yellow (YELLOW) Urine Appearance Clear (CLEAR) Urine pH 5.0 (5.0-6.5) Ur Specific [place] 1.020 (1.010-1.025) Urine Protein Negative (NEGATIVE) mg/dL Urine Glucose (UA) Normal (NORMAL) mg/dL Urine Ketones 15 H (NEGATIVE) mg/dL Urine Occult Blood Negative (NEGATIVE) Urine Nitrite Negative (NEGATIVE) Urine Bilirubin Negative (NEGATIVE) Urine Urobilinogen Normal (NEGATIVE) mg/dL Ur Leukocyte Esterase Negative (NEGATIVE) Urine RBC 0-5 (0-5) Urine WBC 0-5 (0-5) Ur Squamous Epith Cells Moderate H (NS,R,O) Urine Bacteria Few H (NS) Hyaline Casts Few H (NS) Urine Mucus Few H (NS) Meds: Medications Discontinued Medications Generic Name Dose Route Start Last Admin Trade Name Freq PRN Reason Stop Dose Admin Sodium Chloride 1,000 mls @ 999 mls/min 11/25/18 14:55 11/25/18 15:13 Normal Saline IV 11/25/18 14:56 999 mls/min .BOLUS ONE Administration Sodium Chloride 1,000 mls @ 999 mls/min 11/25/18 16:34 11/25/18 16:35 Normal Saline IV 11/25/18 16:35 999 mls/min .BOLUS ONE Administration Meclizine HCl 50 mg 11/25/18 15:34 11/25/18 15:42 Antivert PO 11/25/18 15:35 50 mg ONETIME ONE Administration Sodium Chloride 10 ml 11/25/18 15:10 11/25/18 15:10 Saline Flush FLUSH 10 ml ASDIRECTED PRN Administration IV Use Departure - Departure Time of Disposition: 17:45 Disposition: Home, Self-Care 01 Clinical Impression: Hypotension Instructions: Hypotension, [id number], Dehydration, Adult, [id number], Hypotension Referrals: Sara Pena, [employer] [Primary Care Provider] - Forms: ED Department Discharge Additional Instructions: Rest for the night increase oral fluids Do not take your propanolol until seen by your doctor next week
== END 2018-11-25 17:53 | disposition home or self-care (01) ==
LOC: FB.ED 14:43
DX: I95.9 Hypotension, unspecified (principal); K21.9 Gastro-esophageal reflux disease without esophagitis; E11.9 Type 2 diabetes mellitus without complications; E78.00 Pure hypercholesterolemia, unspecified; Z88.0 Allergy status to penicillin; Z88.5 Allergy status to narcotic agent; Z91.013 Allergy to seafood; Z79.899 Other long term (current) drug therapy; Z79.84 Long term (current) use of oral hypoglycemic drugs; Z79.82 Long term (current) use of aspirin; Z90.49 Acquired absence of other specified parts of digestive tract; Z98.890 Other specified postprocedural states; Z68.30 Body mass index [BMI] 30.0-30.9, adult
CPT/HCPCS: 36415; 70450; 71046; 73501; 80053; 81001; 84484; 85025; 93005; 96360; 96361; 99285; A9270; J7030

== ENCOUNTER 2019-02-27 12:22 | Emergency (ER) | payer MEDICARE, MEDICAID ==
--- NOTE | 2019-02-27 13:43 | EDM.PDOC ---
ED HPI GENERAL MEDICAL PROBLEM - General Chief Complaint: General Stated Complaint: FELL ON ICE, LEFT SIDE Time Seen by Provider: 02/27/19 13:10 Source of Information: Reports: Patient History Limitations: Reports: No Limitations - History of Present Illness INITIAL COMMENTS - FREE TEXT/NARRATIVE: c/o slip and fall on ice feeling well, not ill did fall after lightheaded and dizzy 3m ago, w/u showed dehydration (ketones in urine), inc'd BUN/creat from baseline and low BP (meds adjusted) not lightheaded and dizzy since then, not fallen since then until 2d ago no obvious fx on XR tender over T10 at MAL L lat rib Pain Score (Numeric/FACES): 7 - Related Data Allergies Allergy/AdvReac Type Severity Reaction Status Date / Time hydrocodone Allergy Leg Cramps Verified 02/27/19 12:34 Penicillins Allergy Rash Verified 02/27/19 12:34 shellfish derived Allergy Rash Verified 02/27/19 12:34 Home Meds: Home Meds atorvaSTATin [Lipitor] 20 mg PO DAILY 03/02/15 [History] metFORMIN [Glucophage] 500 mg PO DAILY 03/02/15 [History] Albuterol [Ventolin HFA] 2 puff INH Q6H PRN 01/17/16 [History] Gabapentin [Neurontin] 300 mg PO TID 01/17/16 [History] Tamsulosin [Flomax] 0.4 mg PO DAILY 01/17/16 [History] SUMAtriptan [Sumatriptan] 20 mg ELLIE ASDIRECTED PRN 07/09/17 [History] Aspirin 81 mg PO DAILY 07/01/18 [History] Omeprazole 20 mg PO DAILY 07/01/18 [History] Propranolol HCl [Propranolol HCl ER] 120 mg PO DAILY 07/01/18 [History] Pregabalin 200 mg DAILY 02/27/19 [History] buPROPion HCl [Wellbutrin Xl] 300 mg PO DAILY 02/27/19 [History] Past Medical History - Past Health History Medical/Surgical History: Denies Medical/Surgical History HEENT History: Reports: Macular Degeneration Cardiovascular History: Reports: High Cholesterol, Hypertension Respiratory History: Reports: Sleep Apnea, SOB Other Respiratory History: uses CPAP @ [facility]. Gastrointestinal History: Reports: GERD Genitourinary History: Reports: Prostate Disorder Musculoskeletal History: Reports: Arthritis, Back Pain, Chronic, Fracture, Neck Pain, Chronic Other Musculoskeletal History: Hx L fx foot, fx pelvis & R hip, R collar bone, R elbow, Neurological History: Reports: Brain Injury, Concussion, Head Trauma, Migraines , Neuropathy, Diabetic, Seizure Psychiatric History: Reports: Anxiety, Depression, Psych Hospitalization(s) Other Psychiatric History: ETOH abuse & tx Endocrine/Metabolic History: Reports: Diabetes, Type II, Obesity/BMI 30+ - Infectious Disease History Infectious Disease History: Reports: Chicken Pox, Measles - Past Surgical History Head Surgeries/Procedures: Reports: None HEENT Surgical History: Reports: Adenoidectomy, Tonsillectomy GI Surgical History: Reports: Cholecystectomy, Colonoscopy, Hernia Repair/Other , Polypectomy Neurological Surgical History: Reports: None Musculoskeletal Surgical History: Reports: Knee Replacement Other Musculoskeletal Surgeries/Procedures:: L knee replacement Social & Family History - Family History Family Medical History: Noncontributory - Tobacco Use Smoking Status *Q: Former Smoker Years of Tobacco use: 45 Used Tobacco, but Quit: Yes Month/Year Tobacco Last Used: 2016 - Caffeine Use Caffeine Use: Reports: Coffee, Tea - Recreational Drug Use Recreational Drug Use: No ED ROS GENERAL - Review of Systems Review Of Systems: See Below Constitutional: Reports: No Symptoms HEENT: Reports: No Symptoms, Vision Change Cardiovascular: Reports: No Symptoms Endocrine: Reports: No Symptoms GI/Abdominal: Reports: No Symptoms : Reports: No Symptoms Musculoskeletal: Reports: Other (left sided chest pain) Skin: Reports: No Symptoms Neurological: Reports: No Symptoms Psychiatric: Reports: No Symptoms Hematologic/Lymphatic: Reports: No Symptoms Immunologic: Reports: No Symptoms ED EXAM, GENERAL - Physical Exam Exam: See Below Exam Limited By: Other (alert, pleasant, nonill) General Appearance: Alert, WD/WN, No Apparent Distress Nose: Normal Inspection Throat/Mouth: Normal Inspection Head: Atraumatic, Normocephalic Neck: Normal Inspection, Supple, Non-Tender, Full Range of Motion Respiratory/Chest: No Respiratory Distress, Lungs Clear, Normal Breath Sounds, Other (pt with 1-2+ tender at T10 or T11 in MCL, however NT ant/pos, no ecchymosis) GI/Abdominal: Soft, Non-Tender Back Exam: Normal Inspection, Full Range of Motion Extremities: Normal Inspection, Normal Range of Motion, Non-Tender, No Pedal Edema Neurological: Alert, Oriented, CN II-XII Intact, Normal Cognition, Normal Gait Psychiatric: Normal Affect, Normal Mood Skin Exam: Warm, Dry, Intact, Normal Color, No Rash Lymphatic: No Adenopathy Course - Vital Signs Last Recorded V/S: Last Vital Signs Temp 36.2 C 02/27/19 12:28 Pulse 69 02/27/19 12:28 Resp 18 02/27/19 12:28 BP 123/76 02/27/19 12:28 Pulse Ox 97 02/27/19 12:28 - Orders/Labs/Meds Orders: Active Orders 24 hr Category Date Time Status Ribs 2V w Chest Lt [CR] Stat Exams 02/27/19 12:30 Taken - Re-Assessments/Exams Free Text/Narrative Re-Assessment/Exam: 02/27/19 13:47 pt with localized tender of rib yet appears nontender along the rest of the rib suggesting that there is no fx, on obvious fx on prelim reading of x-ray Departure - Departure Time of Disposition: 13:39 Disposition: Home, Self-Care 01 Condition: Good Clinical Impression: Contusion of rib on left side - Discharge Information *PRESCRIPTION DRUG MONITORING PROGRAM REVIEWED*: Not Applicable *COPY OF PRESCRIPTION DRUG MONITORING REPORT IN PATIENT EBONIE: Not Applicable Instructions: Chest Contusion, Adult Referrals: Sara Pena, ACTIVE DIRECTORY ADMINISTRATOR [Primary Care Provider] - Additional Instructions: Your x-rays appear to be negative (altho sometimes a rib can be cracked and not show up on x-ray). Avoid bending, twisting, lifting--anything that will aggravate the rib. In all probability, it should be much better in 2-3 weeks. Continue ice for 10 minutes several times a day. Continue gabapentin for pain. Also take acetaminophen 500 mg 2 tabs 4 times a day for one week. See your doctor in one week. Your kidney test were running on the high side 3 months ago (probably because of being dehydrated), which your doctor may want to recheck.Call your Physician or Return to Emergency Department if: * Your condition worsens in any way. * You develop fever greater than 100.4. * You have vomiting that does not stop with medications. * You have pain that is not controlled with medications.
[2019-02-27 14:37] VITALS: BP 120/72; PULSE 62
== END 2019-02-27 14:10 | disposition home or self-care (01) ==
LOC: FB.ED 12:22
DX: S20.212A Contusion of left front wall of thorax, initial encounter (principal); E78.00 Pure hypercholesterolemia, unspecified; I10 Essential (primary) hypertension; K21.9 Gastro-esophageal reflux disease without esophagitis; E11.9 Type 2 diabetes mellitus without complications; E66.9 Obesity, unspecified; Z88.0 Allergy status to penicillin; Z88.5 Allergy status to narcotic agent; Z91.013 Allergy to seafood; Z79.899 Other long term (current) drug therapy; Z79.82 Long term (current) use of aspirin; Z79.84 Long term (current) use of oral hypoglycemic drugs; Z87.891 Personal history of nicotine dependence; Z68.41 Body mass index [BMI] 40.0-44.9, adult; W00.0XXA Fall on same level due to ice and snow, initial encounter
CPT/HCPCS: 71101-LT; 99285-25

== ENCOUNTER 2019-06-02 13:36 | Emergency (ER) | payer MEDICAID, MEDICARE ==
[2019-06-02] MEDS ORDERED: Nitroglycerin 0.4 MG Tab.SL SL ONE ×2 (13:49→13:58)
[2019-06-02] MEDS ORDERED: Aspirin 81 MG Tab.Chew PO ONE (13:49)
--- NOTE | 2019-06-02 14:19 | EDM.PDOC ---
ED HPI GENERAL MEDICAL PROBLEM - General Chief Complaint: Cardiovascular Problem Stated Complaint: CHEST PAIN Time Seen by Provider: 06/02/19 13:55 Source of Information: Reports: Patient History Limitations: Reports: No Limitations - History of Present Illness INITIAL COMMENTS - FREE TEXT/NARRATIVE: Patient presented to the ED because of chest pain which started yeterday. the pain is sharp occasionally pressure over the sternal area,6/10. he c/o nausea but no vomiting,denies any dyspnea. There is no h/o CAD and he had an angiogram done almost 4 years ago which is negative. Mid-Sternal Chest Pain Score (Numeric/FACES): 4 - Related Data Allergies Allergy/AdvReac Type Severity Reaction Status Date / Time hydrocodone Allergy Leg Cramps Verified 02/27/19 12:34 Penicillins Allergy Rash Verified 02/27/19 12:34 shellfish derived Allergy Rash Verified 02/27/19 12:34 Home Meds: Home Meds atorvaSTATin [Lipitor] 20 mg PO DAILY 03/02/15 [History] metFORMIN [Glucophage] 500 mg PO DAILY 03/02/15 [History] Albuterol [Ventolin HFA] 2 puff INH Q6H PRN 01/17/16 [History] Gabapentin [Neurontin] 300 mg PO TID 01/17/16 [History] Tamsulosin [Flomax] 0.4 mg PO DAILY 01/17/16 [History] SUMAtriptan [Sumatriptan] 20 mg ELLIE ASDIRECTED PRN 07/09/17 [History] Aspirin 81 mg PO DAILY 07/01/18 [History] Omeprazole 20 mg PO DAILY 07/01/18 [History] Propranolol HCl [Propranolol HCl ER] 120 mg PO DAILY 07/01/18 [History] Pregabalin 200 mg DAILY 02/27/19 [History] buPROPion HCl [Wellbutrin Xl] 300 mg PO DAILY 02/27/19 [History] Past Medical History - Past Health History Medical/Surgical History: Denies Medical/Surgical History HEENT History: Reports: Macular Degeneration Cardiovascular History: Reports: High Cholesterol, Hypertension Respiratory History: Reports: Sleep Apnea, SOB Other Respiratory History: uses CPAP @ [facility]. Gastrointestinal History: Reports: GERD Genitourinary History: Reports: Prostate Disorder Musculoskeletal History: Reports: Arthritis, Back Pain, Chronic, Fracture, Neck Pain, Chronic Other Musculoskeletal History: Hx L fx foot, fx pelvis & R hip, R collar bone, R elbow, Neurological History: Reports: Brain Injury, Concussion, Head Trauma, Migraines , Neuropathy, Diabetic, Seizure Psychiatric History: Reports: Anxiety, Depression, Psych Hospitalization(s) Other Psychiatric History: ETOH abuse & tx Endocrine/Metabolic History: Reports: Diabetes, Type II, Obesity/BMI 30+ - Infectious Disease History Infectious Disease History: Reports: Chicken Pox, Measles - Past Surgical History Head Surgeries/Procedures: Reports: None HEENT Surgical History: Reports: Adenoidectomy, Tonsillectomy GI Surgical History: Reports: Cholecystectomy, Colonoscopy, Hernia Repair/Other , Polypectomy Neurological Surgical History: Reports: None Musculoskeletal Surgical History: Reports: Knee Replacement Other Musculoskeletal Surgeries/Procedures:: L knee replacement Social & Family History - Family History Family Medical History: Noncontributory - Tobacco Use Smoking Status *Q: Former Smoker Used Tobacco, but Quit: No - Caffeine Use Caffeine Use: Reports: Soda - Recreational Drug Use Recreational Drug Use: No ED ROS GENERAL - Review of Systems Review Of Systems: See Below Constitutional: Reports: No Symptoms HEENT: Reports: No Symptoms Respiratory: Reports: No Symptoms Cardiovascular: Reports: Chest Pain Endocrine: Reports: No Symptoms : Reports: No Symptoms Musculoskeletal: Reports: No Symptoms Skin: Reports: No Symptoms Neurological: Reports: No Symptoms Psychiatric: Reports: No Symptoms ED EXAM, GENERAL - Physical Exam Exam: See Below Exam Limited By: No Limitations Ears: Normal External Exam Nose: Normal Inspection, Normal Mucosa, No Blood Throat/Mouth: Normal Inspection, Normal Lips Head: Atraumatic, Normocephalic Respiratory/Chest: No Respiratory Distress, Lungs Clear, Normal Breath Sounds Cardiovascular: Normal Peripheral Pulses, Regular Rate, Rhythm, No Edema GI/Abdominal: Normal Bowel Sounds, Soft, No Organomegaly, No Distention Back Exam: Normal Inspection, Full Range of Motion Extremities: Normal Inspection Neurological: Alert, Oriented, CN II-XII Intact, Normal Cognition, Normal Gait Psychiatric: Normal Affect, Normal Mood Course - Vital Signs Text/Narrative:: Labs/EKG was reviewed with the patient and verbalized full understanding EKG-NSR Trop-neg ASA 324 mg po x1 NTG 0.4 mg SL x2 and his pain resolved Last Recorded V/S: Last Vital Signs Temp 36.7 C 06/02/19 13:55 Pulse 66 06/02/19 14:17 Resp 18 06/02/19 14:17 BP 94/53 L 06/02/19 14:17 Pulse Ox 95 06/02/19 14:17 - Orders/Labs/Meds Orders: Active Orders 24 hr Category Date Time Status EKG Documentation Completion [RC] ASDIRECTED Care 06/02/19 13:42 Ordered EKG 12 Lead [EK] Routine Ther 06/02/19 13:42 Ordered Labs: Laboratory Tests 06/02/19 06/02/19 06/02/19 Range/Units 13:55 13:55 13:55 WBC 8.8 (4.5-12.0) X10-3/uL RBC 5.28 (4.30-5.75) x10(6)uL Hgb 15.2 (13.5-17.8) g/dL Hct 45.8 (30.0-51.3) % MCV 86.6 (80-96) fL MCH 28.8 (27.7-33.6) pg MCHC 33.2 (32.2-35.4) g/dL RDW 15.1 (11.5-15.5) % Plt Count 322 (125-369) X10(3)uL MPV 7.6 (7.4-10.4) fL Neut % (Auto) 62.0 (46-82) % Lymph % (Auto) 27.8 (13-37) % [place] % (Auto) 7.0 (4-12) % Eos % (Auto) 3 (1.0-5.0) % Baso % (Auto) 1 (0-2) % Neut # (Auto) 5.4 (1.6-8.3) # Lymph # (Auto) 2.5 (0.6-5.0) # [place] # (Auto) 0.6 (0.0-1.3) # Eos # (Auto) 0.2 (0.0-0.8) # Baso # (Auto) 0.1 (0.0-0.2) # Sodium 140 (135-145) mmol/L Potassium 3.9 (3.5-5.3) mmol/L Chloride 105 (100-110) mmol/L Carbon Dioxide 29 (21-32) mmol/L BUN 16 (7-18) mg/dL Creatinine 1.1 (0.70-1.30) mg/dL Est Cr Clr Drug Dosing 78.69 mL/min Estimated GFR (MDRD) > 60 (>60) BUN/Creatinine Ratio 14.5 (9-20) Glucose 110 (80-116) mg/dL Calcium 8.2 L (8.6-10.2) mg/dL Total Bilirubin 0.4 (0.1-1.3) mg/dL AST 23 D (5-25) IU/L ALT 42 H (12-36) U/L Alkaline Phosphatase 70 (56-112) IU/L Troponin I 7.4 (4.0-60.3) pg/mL Total Protein 6.3 (6.0-8.0) g/dL Albumin 3.3 (3.2-4.6) g/dL Globulin 3.0 g/dL Albumin/Globulin Ratio 1.1 Meds: Medications Discontinued Medications Generic Name Dose Route Start Last Admin Trade Name Freq PRN Reason Stop Dose Admin Aspirin 324 mg 06/02/19 13:49 06/02/19 13:53 Aspirin PO 06/02/19 13:50 324 mg ONETIME ONE Administration Nitroglycerin 0.4 mg 06/02/19 13:49 06/02/19 13:54 Nitrostat SL 06/02/19 13:50 0.4 mg ONETIME ONE Administration Nitroglycerin 0.4 mg 06/02/19 13:58 06/02/19 14:03 Nitrostat SL 06/02/19 13:59 0.4 mg ONETIME ONE Administration Departure - Departure Time of Disposition: 14:30 Disposition: Home, Self-Care 01 Condition: Good Clinical Impression: Chest pain Instructions: Angina Pectoris Referrals: Sara Pena NP [Primary Care Provider] - Forms: ED Department Discharge Additional Instructions: Please read discharge instructions on chest pain aspirin 81 mg daily follow up with your doctor next week, you might need another stress test if you have not have one for the past 2 years Sepsis Event Note - Evaluation Sepsis Screening Result: No Definite Risk - Focused Exam Vital Signs: Vital Signs Temp Pulse Resp BP BP Pulse Ox 06/02/19 14:17 66 18 94/53 L 95 06/02/19 14:03 127/70 06/02/19 13:55 36.7 C 77 20 136/74 99 06/02/19 13:54 136/74 Date Exam was Performed: 06/02/19 Time Exam was Performed: 14:21 - My Orders Last 24 Hours: My Active Orders 06/02/19 13:42 EKG Documentation Completion [RC] ASDIRECTED EKG 12 Lead [EK] Routine - Assessment/Plan Last 24 Hours: My Active Orders 06/02/19 13:42 EKG Documentation Completion [RC] ASDIRECTED EKG 12 Lead [EK] Routine
[2019-06-02 14:22] VITALS: BP 94/53; PULSE 66
== END 2019-06-02 14:59 | disposition home or self-care (01) ==
LOC: FB.ED 13:36
DX: R07.89 Other chest pain (principal); I10 Essential (primary) hypertension; E11.9 Type 2 diabetes mellitus without complications; Z88.0 Allergy status to penicillin; Z88.5 Allergy status to narcotic agent; Z91.013 Allergy to seafood; Z79.899 Other long term (current) drug therapy; Z79.82 Long term (current) use of aspirin; Z79.84 Long term (current) use of oral hypoglycemic drugs; Z90.49 Acquired absence of other specified parts of digestive tract; Z87.891 Personal history of nicotine dependence
CPT/HCPCS: 36415; 80053; 84484; 85025; 93005; 99285; A9270

== ENCOUNTER 2021-07-29 08:41 | Emergency (ER) | payer MEDICARE, MEDICAID ==
[2021-07-29 09:36] VITALS: BP 99/53; PULSE 71
[2021-07-29] MEDS ORDERED: Lactated Ringers 1,000 ML IV ONE (09:42)
[2021-07-29] MEDS ORDERED: Magnesium Sulfate/Water 50 ML IV ONE (10:15)
== END 2021-07-29 12:00 | disposition home or self-care (01) ==
LOC: FB.ED 08:41
DX: I95.1 Orthostatic hypotension (principal); E83.42 Hypomagnesemia; E11.9 Type 2 diabetes mellitus without complications; I10 Essential (primary) hypertension; E78.00 Pure hypercholesterolemia, unspecified; K21.9 Gastro-esophageal reflux disease without esophagitis; F41.9 Anxiety disorder, unspecified; F32.A Depression, unspecified; M19.90 Unspecified osteoarthritis, unspecified site; E66.9 Obesity, unspecified; Z68.42 Body mass index [BMI] 45.0-49.9, adult; Z79.82 Long term (current) use of aspirin; Z79.84 Long term (current) use of oral hypoglycemic drugs; Z79.899 Other long term (current) drug therapy; Z88.0 Allergy status to penicillin; Z88.8 Allergy status to other drugs, medicaments and biological substances; Z91.013 Allergy to seafood
CPT/HCPCS: 36415; 80048; 83735; 84484; 96365; 99283; J3475; J7120

== ENCOUNTER 2022-10-06 10:15 | Emergency (ER) | payer MEDICARE, MEDICAID, OTHER ==
[2022-10-06] MEDS ORDERED: Sodium Chloride 0.9% 10 ML Syringe FLUSH PRN (10:16)
[2022-10-06 10:25] VITALS: BP 130/61; PULSE 75
[2022-10-06] MEDS ORDERED: Albuterol/Ipratropium 3.0-0.5 MG/3 ML Neb Soln NEB ONE (10:27)
[2022-10-06] MEDS ORDERED: methylPREDNISolone Sodium Succinate 125 MG/2 ML SDV IM ONE (10:27)
[2022-10-06 10:36] LABS: BASOPHILS ABSOLUTE AUTO 0.1 x10-3/uL (0.0-0.3); BASOPHILS PERCENT AUTO 1.3 % (0.3-3.8); EOSINOPHILS ABSOLUTE AUTO 0.2 x10-3/uL (0.0-0.6); EOSINOPHILS PERCENT AUTO 2.7 % (0.1-6.8); HEMATOCRIT 46.7 % (38.3-50.1); HEMOGLOBIN 15.3 g/dL (12.9-17.7); LYMPHOCYTES ABSOLUTE AUTO 1.9 x10-3/uL (0.5-4.5); LYMPHOCYTES PERCENT AUTO 21.8 % (15.8-45.3); MEAN CORPUSCULAR HEMOGLOBIN 28.8 pg (27.0-33.3); MEAN CORPUSCULAR HGB CONC 32.7 g/dL (28.7-35.3); MEAN CORPUSCULAR VOLUME 87.9 fL (80.8-98.7); MEAN PLATELET VOLUME 7.8 fL (6.7-11.0); MONOCYTES ABSOLUTE AUTO 0.8 x10-3/uL (0.0-1.2); NEUTROPHILS ABSOLUTE AUTO 5.7 x10-3/uL (1.7-6.9); NEUTROPHILS PERCENT AUTO 65.2 % (40.3-71.8); PLATELET COUNT,PLT 296 x10(3)uL (117-477); RED BLOOD CELL COUNT 5.32 x10(6)uL (3.90-5.90); RED CELL DISTRIBUTION WIDTH 14.3 % (12.4-15.0); WHITE BLOOD CELL COUNT,WBC 8.7 x10-3/uL (3.2-10.1)
[2022-10-06 10:40] LABS: BLOOD UREA NITROGEN,BUN 17 mg/dL (7-18); BUN/CREATININE RATIO 14.2 (9-20); CALCIUM 8.9 mg/dL (8.6-10.2); CARBON DIOXIDE,CO2 30 mmol/L (21-32); CHLORIDE,CL 102 mmol/L (100-110); CREATININE 1.2 mg/dL (0.70-1.30); ESTIMATED GFR 67 mL/min (>60); GLUCOSE RANDOM 145 mg/dL (80-116); POTASSIUM,K 4.2 mmol/L (3.5-5.3); SODIUM,NA 141 mmol/L (135-145)
[2022-10-06 10:46] LABS: A/G RATIO 1.2; ALANINE AMINOTRANSFERASE,ALT 92 U/L (12-36); ALBUMIN 3.7 g/dL (3.2-4.6); ALKALINE PHOSPHATASE 67 IU/L (56-112); ASPARTATE AMNIOTRANSFERASE,AST 54 IU/L (5-25); BILIRUBIN TOTAL 0.2 mg/dL (0.1-1.3); PROTEIN TOTAL,TP 6.8 g/dL (6.0-8.0)
== END 2022-10-06 11:45 | disposition home or self-care (01) ==
LOC: FB.ED 10:15
DX: J44.1 Chronic obstructive pulmonary disease with (acute) exacerbation (principal); R09.1 Pleurisy; E66.2 Morbid (severe) obesity with alveolar hypoventilation; E78.00 Pure hypercholesterolemia, unspecified; I10 Essential (primary) hypertension; K21.9 Gastro-esophageal reflux disease without esophagitis; M19.90 Unspecified osteoarthritis, unspecified site; E11.9 Type 2 diabetes mellitus without complications; E66.9 Obesity, unspecified; Z68.42 Body mass index [BMI] 45.0-49.9, adult; Z88.5 Allergy status to narcotic agent; Z91.013 Allergy to seafood; Z79.899 Other long term (current) drug therapy; Z79.82 Long term (current) use of aspirin; Z79.84 Long term (current) use of oral hypoglycemic drugs
CPT/HCPCS: 36415; 71045; 80053; 83880; 84484; 85025; 85379; 93005; 94640; 96372; 99285; J2930; J7620

== ENCOUNTER 2023-12-06 07:41 | Emergency (ER) | payer MEDICARE, MEDICAID, OTHER ==
[2023-12-06] MEDS: Ketorolac 30 MG/ML SDV IM ONE (08:42)
[2023-12-06] MEDS: Cephalexin 500 MG Cap PO ONE (08:43)
[2023-12-06 08:55] VITALS: BP 152/81; PULSE 65
== END 2023-12-06 08:57 | disposition home or self-care (01) ==
LOC: FB.ED 07:41
DX: K04.7 Periapical abscess without sinus (principal); I10 Essential (primary) hypertension; E11.9 Type 2 diabetes mellitus without complications; E78.00 Pure hypercholesterolemia, unspecified; K21.9 Gastro-esophageal reflux disease without esophagitis; Z88.5 Allergy status to narcotic agent; Z88.0 Allergy status to penicillin; Z91.013 Allergy to seafood; Z79.84 Long term (current) use of oral hypoglycemic drugs; Z79.51 Long term (current) use of inhaled steroids; Z79.82 Long term (current) use of aspirin; Z79.899 Other long term (current) drug therapy; Z90.49 Acquired absence of other specified parts of digestive tract; Z87.891 Personal history of nicotine dependence
CPT/HCPCS: 96372; 99282; A9270; J1885; 93005